=== PATIENT | male | born 1970 | race Caucasian/White ===

== ENCOUNTER 2018-05-28 12:39 | Emergency (ER) | payer OTHER ==
[~2018-05-28] VITALS: Ht 182.9 cm; Wt 111.1 kg
[~2018-05-28 12:39] MED LIST: NEURONTIN600 MG PO; ULTRACET PO
[2018-05-28] MEDS ORDERED: IPRAT-ALBUT 0.5-3 ML IH (21:43)
[2018-05-28] MEDS ORDERED: ZITHROMAX500 MG PO (21:43)
[2018-05-28] MEDS ORDERED: MEDROLPACK PO (21:43)
[2018-05-28] MEDS ORDERED: PROMETH-CODEIN 65 ML PO (21:43)
== END 2018-05-28 22:06 | disposition home or self-care (01) ==
LOC: ER 12:39
DX: J06.9 Acute upper respiratory infection, unspecified (principal); R06.2 Wheezing; R07.89 Other chest pain

== ENCOUNTER → 2019-02-22 | Emergency (ER) | payer OTHER ==
[~2019-02-22] VITALS: Ht 190.5 cm; Wt 111.1 kg
[~2019-02-22] MED LIST changes: +IPRAT-ALBUT 0.5-3 ML IH; +MEDROLPACK PO; +PROMETH-CODEIN 65 ML PO; +ZITHROMAX500 MG PO
== END | disposition home or self-care (01) ==
LOC: ER 21:27
DX: M10.9 Gout, unspecified (principal); M25.572 Pain in left ankle and joints of left foot

== ENCOUNTER 2019-03-03 10:24 | Outpatient (CLI) | payer OTHER | END 2019-03-03 10:44 | disposition home or self-care (01) | LOC: LAB 10:24 | DX: R10.9 Unspecified abdominal pain (principal); I10 Essential (primary) hypertension ==

== ENCOUNTER 2019-03-22 11:00 | Inpatient (IN) | payer OTHER ==
[~2019-03-22] VITALS: Ht 182.9 cm; Wt 113.4 kg
[2019-03-25] MEDS ORDERED: ZOFRAN4 MG PO (14:23)
[2019-03-25] MEDS ORDERED: TRAMADOL HCL50 MG PO (14:23)
[2019-03-25] MEDS ORDERED: MIRALAX17 GM PO (14:23)
[2019-03-25] MEDS ORDERED: NEURONTIN300 MG PO (14:23)
[2019-03-25] MEDS ORDERED: TYLENOL EXTRA500 MG PO (14:23)
== END 2019-03-25 17:08 | disposition home or self-care (01) | DRG 355 ==
LOC: SURH 03-25 07:00 → O/R 03-25 10:27 → SURH 03-25 11:00 → O/R 03-25 17:08
PROVIDERS: ADMIT Surgery
PROC: 0KXL0Z6 Transfer Left Abdomen Muscle, Transverse Rectus Abdominis Myocutaneous Flap, Open Approach (ICD-10-PCS; 2019-03-25)
PROC: 0KXK0Z6 Transfer Right Abdomen Muscle, Transverse Rectus Abdominis Myocutaneous Flap, Open Approach (ICD-10-PCS; 2019-03-25)
PROC: 0WUF4JZ Supplement Abdominal Wall with Synthetic Substitute, Percutaneous Endoscopic Approach (ICD-10-PCS; principal; 2019-03-25 07:00)
DX: K43.0 Incisional hernia with obstruction, without gangrene (principal); K42.0 Umbilical hernia with obstruction, without gangrene

== ENCOUNTER 2019-10-25 13:40 | Emergency (ER) | payer OTHER ==
[~2019-10-25] VITALS: Ht 193 cm; Wt 112.9 kg
[~2019-10-25 13:40] MED LIST changes: +MIRALAX17 GM PO; +NEURONTIN300 MG PO; +TRAMADOL HCL50 MG PO; +TYLENOL EXTRA500 MG PO; +ZOFRAN4 MG PO
== END 2019-10-25 21:59 | disposition home or self-care (01) ==
LOC: ER 13:40
DX: M10.072 Idiopathic gout, left ankle and foot (principal); M25.572 Pain in left ankle and joints of left foot